=== PATIENT | male | born 1935 | race Caucasian/White ===

== ENCOUNTER 2020-07-09 06:20 | Emergency (ER) | payer MEDICARE ==
[2020-07-09 07:13] LABS: HEMATOCRIT 32.7 % (37.9-51.0); HEMOGLOBIN 10.9 g/dL (13.5-17.0); MEAN CORPUSCULAR HGB CONC 33.2 g/dL (32.0-36.0); MEAN CORPUSCULAR VOLUME 93 fl (80-97); RED CELL DISTRIBUTION WIDTH 16.9 % (11.5-14.0); WHITE BLOOD COUNT 3.8 10^3/uL (4.0-10.5)
[2020-07-09 07:23] LABS: ALKALINE PHOSPHATASE 87 U/L (38-126); ANION GAP 6 (5-19); ASPARTATE AMINO TRANSFERASE 29 U/L (17-59); BILIRUBIN,DIRECT 0.1 mg/dL (0.0-0.4); BILIRUBIN,TOTAL 0.7 mg/dL (0.2-1.3); BLOOD UREA NITROGEN 28 mg/dL (7-20); CALCIUM 9.1 mg/dL (8.4-10.2); CARBON DIOXIDE 25 mmol/L (22-30); CHLORIDE 109 mmol/L (98-107); GLUCOSE 87 mg/dL (75-110); POTASSIUM 4.7 mmol/L (3.6-5.0); TOTAL PROTEIN 5.7 g/dL (6.3-8.2)
--- NOTE | 2020-07-09 07:24 | EKG REPORT ---
SEVERITY:- ABNORMAL ECG - SINUS RHYTHM MULTIPLE ATRIAL PREMATURE COMPLEXES NONSPECIFIC T ABNORMALITIES, LATERAL LEADS : Confirmed by: Vicente Quigley MD 09-Jul-2020 07:24:16
[2020-07-09 07:25] LABS: CREATINE KINASE < 20 U/L (55-170)
[2020-07-09 07:33] LABS: ABSOLUTE LYMPHOCYTES# (MANUAL) 1.3 10^3/uL (0.5-4.7); ABSOLUTE MONOCYTES # (MANUAL) 0.4 10^3/uL (0.1-1.4); BASOPHILS % (MANUAL) 0 % (0-2); EOSINOPHILS % (MANUAL) 2 % (0-6); LYMPHOCYTES % (MANUAL) 33 % (13-45); MONOCYTES % (MANUAL) 10 % (3-13); SEGMENTED NEUTROPHILS % (MAN) 41 % (42-78); TOTAL CELLS COUNTED 100
[2020-07-09] MEDS ORDERED: MAG HYDROX/AL HYDROX/SIMETH SUSP 30 ML UDCUP PO ONE ×2 (07:36→08:44)
[2020-07-09] MEDS ORDERED: LIDOCAINE 2% VISCOUS SOLN 15 ML UDCUP PO ONE ×2 (07:36→08:44)
[2020-07-09 07:39] LABS: ANISOCYTOSIS 1+
[2020-07-09 07:40] LABS: PLATELET COMMENT DECREASED; TEAR DROP CELLS SLIGHT
[2020-07-09 07:41] LABS: PLATELET COUNT 70 10^3/uL (150-450)
[2020-07-09 07:42] LABS: BAND NEUTROPHILS % (MANUAL) 13 % (3-5); CREATINE KINASE MB < 0.22 ng/mL (<4.55); TROPONIN I < 0.012 ng/mL
--- NOTE | 2020-07-09 08:11 | RADIOLOGY REPORT (SQ) ---
EXAM DESCRIPTION: CHEST SINGLE VIEW IMAGES COMPLETED DATE/TIME: 07/09/2020 7:49 am REASON FOR STUDY: Chest pain COMPARISON: None. EXAM PARAMETERS: NUMBER OF VIEWS: One view. TECHNIQUE: Single frontal radiographic view of the chest acquired. RADIATION DOSE: NA LIMITATIONS: None. FINDINGS: LUNGS AND PLEURA: No opacities, masses or pneumothorax. No pleural effusion. MEDIASTINUM AND HILAR STRUCTURES: No masses. Contour normal. HEART AND VASCULAR STRUCTURES: Enlarged cardiac silhouette. No evidence of pulmonary edema. BONES: No acute findings. HARDWARE: Right internal jugular base chest port catheter tip cavoatrial junction. OTHER: No other significant finding. IMPRESSION: No evidence of acute cardiopulmonary process. TECHNICAL DOCUMENTATION: JOB ID: [id number] [employer]- All Rights Reserved Reading location - IP/workstation name: [email or web address]
--- NOTE | 2020-07-09 09:10 | ER Document Report ---
Entered by MARILYN GOOD SCRIBE 07/09/20 0725 Acting as scribe for:MELISSA GARCIA MD ED General - General Chief Complaint: Chest Pain > 30 Stated Complaint: CHEST PAIN Time Seen by Provider: 07/09/20 07:19 Mode of Arrival: Medic Information source: Patient Notes: This 84 year old male patient with a history of hypertension, A fib, and prostate cancer currently undergoing chemotherapy every x3 weeks (last treatment 07/02) presents to the ED today with complaints of sternal chest pain described as a pressure that started at 0200 this morning. Patient states that he initially felt the pain "pinpoint" around his chest and that at 0430, he started having palpitations which he has never felt before, so he called EMS. He describes this sensation as "not painful, but compressive." Denies shortness of breath. He also notes bilateral leg swelling started yesterday. He took 324 mg Aspirin prior to EMS arrival. EMS reports that the patient was in A fib on their monitor with heart rates between 90-120 bpm. Patient states that he was diagnosed with A fib x2 years ago and had to be cardioverted. Patient mentions that he was admitted at [facility] from 06/28 to 07/01 for bacterial pneumonia and that he has not been having any respiratory issues since discharge. He and his are visiting from [place] and are planning to go back this weekend. - Related Data Allergies/Adverse Reactions: No Known Allergies Allergy (Unverified 07/09/20 06:29) Home Medications: lisonpril, prednisone Past Medical History - General Information source: Patient, [facility] Records - Social History Smoking Status: Never Smoker Cigarette use (# per day): No Chew tobacco use (# tins/day): No Smoking Education Provided: No Frequency of alcohol use: None Drug Abuse: None Lives with: Spouse/Significant other Family History: Reviewed & Not Pertinent Patient has suicidal ideation: No Patient has homicidal ideation: No - Past Medical History Cardiac Medical History: Reports: Hx Atrial Fibrillation - no meds, Hx Hypertension Pulmonary Medical History: Reports: Hx Pneumonia Malignancy Medical History: Reports Hx Prostate Cancer, Reports Other - Hx Bladder Cancer Past Surgical History: Reports: Hx Cholecystectomy, Hx Orthopedic Surgery - left leg Review of Systems - Review of Systems Constitutional: See HPI, Recent illness EENT: No symptoms reported Cardiovascular: See HPI, Chest pain - pressure, Palpitations Respiratory: See HPI. denies: Short of breath Gastrointestinal: No symptoms reported Genitourinary: No symptoms reported Male Genitourinary: No symptoms reported Musculoskeletal: See HPI, Leg swelling, Ankle swelling Skin: No symptoms reported Hematologic/Lymphatic: No symptoms reported Neurological/Psychological: No symptoms reported -: Yes All other systems reviewed and negative Physical Exam - Vital signs Vitals: Pulse Ox 95 07/09/20 06:21 - General General appearance: Alert In distress: None - HEENT Head: Normocephalic, Atraumatic Eyes: Normal Pupils: PERRL - Respiratory Respiratory status: No respiratory distress Chest status: Tender - Tenderness to palpation of sternum. Chest wall is nontender. Breath sounds: Rhonchi - Right lung with cough Chest palpation: Normal - Cardiovascular Rhythm: Other - Irregular Heart sounds: Normal auscultation Murmur: No Friction rub: No Gallop: None auscultated - Abdominal Inspection: Obese Distension: No distension Bowel sounds: Normal Tenderness: Tender - Epigastric tenderness to palpation, Other - Abdomen soft Organomegaly: No organomegaly - Back Back: Normal, Nontender - Extremities General upper extremity: Normal inspection General lower extremity: Edema - 2+ soft boggy edema to bilateral lower extremities - Neurological Neuro grossly intact: Yes Orientation: AAOx4 Presley Coma Scale Eye Opening: Spontaneous [place] Coma Scale Verbal: Oriented [place] Coma Scale Motor: Obeys Commands [place] Coma Scale Total: 15 - Psychological Associated symptoms: Normal affect, Normal mood - Skin Skin Temperature: Warm Skin Moisture: Dry Skin Color: Normal Course - Re-evaluation Re-evalutation: 07/09/20 08:45 Patient reports that his epigastric and substernal chest discomfort seem to improve with GI cocktail, but is still present. Palpating the epigastrium region is less tender now but is still a little tender. I do notice on the monitor that he is now in what appears to be A. fib with RVR with a rate about 120. We will repeat his EKG. they are unable to get the EKG machine in the room before he returned to normal sinus rhythm. I had the rhythm strips pulled and it was obviously A. fib RVR with a rate of 120, but this was short-lived. 07/09/20 15:02 The second GI cocktail completely relieved his epigastric substernal discomfort and he was actually becoming hungry. Patient's chest x-ray is clear and the BNP is quite low so I do not suspect fluid overload is the cause of his edema. His albumin and protein are slightly low which could be contributing to his peripheral edema. He may have been eating increased amounts of sodium [place]. His BUN is a little elevated at 28, and his blood pressure is not elevated so I do not think diuretics would be a good choice at this time. He will be encouraged to elevate his feet as much as possible, wear support/compressive stockings day and night for the next few days, then during the day when he is up and about. He is encouraged to follow a low-sodium diet and for the next few days a bland diet. He is encouraged to take Prilosec OTC once daily, and antacids between meals and at bedtime. Also avoid laying down after eating. 07/09/20 15:05 - Vital Signs Vital signs: Temp Pulse Resp BP Pulse Ox 98.2 F 20 114/66 93 07/09/20 06:24 07/09/20 10:01 07/09/20 10:01 07/09/20 10:01 - Laboratory Result Diagrams: 07/09/20 06:43 07/09/20 06:43 Laboratory results interpreted by me: 07/09/20 07/09/20 06:43 06:43 WBC 3.8 L RBC 3.50 L Hgb 10.9 L Hct 32.7 L RDW 16.9 H Plt Count 70 L Seg Neuts % (Manual) 41 L Band Neutrophils % 13 H Chloride 109 H BUN 28 H Creatine Kinase < 20 L Total Protein 5.7 L Albumin 3.0 L - Diagnostic Test Radiology reviewed: Image reviewed - Chest x-ray does not show any acute cardiopulmonary process., Reports reviewed - Abdominal ultrasound shows a normal appearing liver and spleen with patent normal directional flow in the vasculature. - EKG Interpretation by Me EKG shows normal: Sinus rhythm, Palmer, Intervals, QRS Complexes. abnormal: ST-T Waves - Nonspecific lateral T abnormalities Rate: Normal - 87 Rhythm: NSR, APC's When compared to previous EKG there are: Previous EKG unavailable Discharge - Discharge Clinical Impression: Peripheral edema GERD (gastroesophageal reflux disease) Qualifiers: Esophagitis presence: esophagitis presence not specified Qualified Code(s): K21.9 - Gastro-esophageal reflux disease without esophagitis Condition: Stable Disposition: HOME, SELF-CARE Additional Instructions: Reflux Disease (GERD): Gastro-Esophageal Reflux Disease (GERD) is caused by stomach acid refluxing back up into the esophagus. The valve at the end of the esophagus may be weak. This is common in persons with a hiatal hernia. GERD symptoms can include indigestion, chest pain, heartburn, or food "sticking." Certain foods, alcohol, and aspirin can make GERD worse. Treatment depends on the severity. Usually, antacids or acid-suppressing medicines are used. When the esophagus is acutely inflamed, the physician will often prescribe membrane-protective drugs such as Carafate. Some patients benefit from medication such as Reglan that tightens the valve at the top of the stomach. Avoid those foods that bring on your symptoms. For many people, these foods are coffee, chocolate, onions, garlic, and carbonated drinks. Don't use alcohol, aspirin, caffeine, or tobacco. Don't eat late at night -- within 4 hours of bedtime. Don't over-eat. If necessary, elevate the head of your bed about 4 inches so that stomach acid will not roll up into your esophagus. Call the doctor if you develop severe chest pain, inability to swallow fluids, fever, or worsening symptoms. Edema, Peripheral: You have swelling in your legs. This is called peripheral edema. It can be caused by "leaky capillaries," inflammation, disease of the leg veins, or excess salt and water in your body. Edema may be a sign of heart, kidney, or liver disease. A medical evaluation can determine if there is a serious underlying cause for your edema. Avoid prolonged standing. If you must sit for a long time, occasionally get up and walk around or elevate your legs. Support stockings can be helpful in limiting swelling. Often diuretic or water pills are used to remove excess salt and water from your body. Call the doctor or return if you develop increased swelling, pain, or redness, shortness of breath, chest pain, or any other significant change. Take Prilosec OTC once daily for the next 2 weeks. Eat a bland low sodium diet for the next few days. After that, continue on the low-sodium diet. Avoid laying down within a few hours of eating. Take antacids between meals and at bedtime for the next 2 to 3 days. Elevate your feet all the time for the next few days. Wear compression hose day and night for the next few days until the swelling has gone down, then wear the compression hose during the day to prevent the edema fluid from accumulating. Follow-up with your primary care provider when you return home to [place]. RETURN TO THE EMERGENCY ROOM IF ANY NEW OR WORSENING SYMPTOMS. I personally performed the services described in the documentation, reviewed and edited the documentation which was dictated to the scribe in my presence, and it accurately records my words and actions.
[2020-07-09] MEDS ORDERED: PANTOPRAZOLE SODIUM 40 MG VIAL IV ONE (11:26)
--- NOTE | 2020-07-09 13:53 | RADIOLOGY REPORT (SQ) ---
EXAM DESCRIPTION: U/S ABDOMEN LTD W/DOPPLER IMAGES COMPLETED DATE/TIME: 07/09/2020 1:41 pm REASON FOR STUDY: Bilat LE edema,evaluate liver vascular structures COMPARISON: None. TECHNIQUE: Dynamic and static grayscale images acquired of the limited abdomen and recorded on PACS. Additional selected color Doppler and spectral images recorded. LIMITATIONS: None. FINDINGS: PANCREAS: Not imaged. LIVER: No masses. Echotexture normal. LIVER VASCULATURE: Normal directional flow of the main portal vein and hepatic veins. GALLBLADDER: Not imaged. ULTRASOUND-DETECTED PRITCHARD'S SIGN: Negative. INTRAHEPATIC DUCTS AND COMMON DUCT: CBD and intrahepatic ducts normal caliber. No filling defects. RIGHT KIDNEY: Not imaged. PERITONEAL AND RIGHT PLEURAL SPACE: No ascites or effusions. OTHER: No other significant findings. IMPRESSION: Unremarkable appearance of the liver and spleen. Patent visualized vessels with proper directional flow. TECHNICAL DOCUMENTATION: JOB ID: [id number] 2010 [employer]- All Rights Reserved Reading location - IP/workstation name: [email or web address]
[2020-07-09 15:34] VITALS: BP 120/82
== END 2020-07-09 15:32 | disposition home or self-care (01) ==
LOC: ER 06:20
DX: K21.9 Gastro-esophageal reflux disease without esophagitis (principal); R60.0 Localized edema; I48.91 Unspecified atrial fibrillation; R07.89 Other chest pain; R00.2 Palpitations; R10.816 Epigastric abdominal tenderness; R09.89 Other specified symptoms and signs involving the circulatory and respiratory systems; C61 Malignant neoplasm of prostate; Z87.01 Personal history of pneumonia (recurrent); Z79.899 Other long term (current) drug therapy; Z79.52 Long term (current) use of systemic steroids
CPT/HCPCS: 93005; 99285; 96374; 36415; 82553; 82550; 85025; 80053; 84484; 85379; 83880; 71045; 76705; 93976; 93010; J3490; A9270; C9113